=== PATIENT | male | born 1945 | race Caucasian/White ===

== ENCOUNTER → 2017-10-19 | Day surgery (SDC) | payer BC, MEDICARE ==
[2017-10-16 15:36] LABS: BASOPHILS % 0.5 % (0.0-1.0); EOSINOPHILS # (AUTO) 0.3 (0.0-0.4); EOSINOPHILS % 4.1 % (0.0-6.0); HEMATOCRIT 40.7 % (38.2-49.6); LYMPHOCYTES # (AUTO) 3.2 (1.0-3.2); LYMPHOCYTES % 41.9 % (18.0-39.1); MEAN CORPUSCULAR HEMOGLOBIN 28.5 pg (28-32); MEAN CORPUSCULAR HGB CONC 34.4 g/dL (31-35); MEAN CORPUSCULAR VOLUME 82.7 fL (81-99); MONOCYTES # (AUTO) 0.9 (0.2-0.8); MONOCYTES % 11.8 % (4.4-11.3); NEUTROPHILS # (AUTO) 3.1 (2.1-6.9); NEUTROPHILS % 41.6 % (38.7-80.0); PLATELET COUNT 218 x10e3/uL (140-360); RED BLOOD COUNT 4.92 x10e6/uL (4.3-5.7); RED CELL DISTRIBUTION WIDTH 13.6 % (11.7-14.4)
[2017-10-16 15:49] LABS: ANION GAP 12.8 mmol/L (8-16); CALCIUM 9.5 mg/dL (8.4-10.2); CREATININE, SERUM 1.41 mg/dL (0.72-1.25); POTASSIUM 3.8 mmol/L (3.5-5.1)
--- NOTE | 2017-10-16 16:05 | Diagnostic Imaging Report ---
PROCEDURE: Frontal and lateral views of the chest. COMPARISON: None. INDICATIONS: PREOPERATIVE CHEST XRAY FOR KIDNEY STONE SURGERY FINDINGS: Lines/tubes: None. Lungs: The lungs are well inflated and clear. There is no evidence of pneumonia or pulmonary edema. Pleura: There is no pleural effusion or pneumothorax. Heart and mediastinum: The heart and the mediastinum are normal. Bones: No acute bony abnormality. Degenerative changes in the thoracic spine. Calcification of anterior longitudinal ligaments suggesting DISH IMPRESSION: 1. No acute cardiopulmonary abnormalities. Rashid Fermin M.D. Dictated by: Rashid Fermin M.D. on 10/16/2017 at 16:08 Electronically approved by: Rashid Fermin M.D. on 10/16/2017 at 16:08
[~2017-10-19] MED LIST: ANDROGEL75 G1 TOP; ASPIRIN81 MG PO; ATENOLOL50 MG PO; BENICAR20 MG PO; BILBERRY80 MG PO; BYDUREON2 MG SC; CEFTRIAXONE SOD 1 GM VIAL ONE; CO Q10200 MG PEG; CRANBERRY500 MG PO; CRESTOR5 MG PO; DEXAMETHASONE SOD PHOS INJ 4 MG/ML VIAL ONE; EFFIENT10 MG PO; FENTANYL CITRATE/PF 100MCG/2 ML INJ ONE; FEXOFENADINE H180 MG PO; FINACEA50 GM TOP; FLOMAX0.4 MG PO; IOPAMIDOL 610MG/1ML 300 MG/ML VIAL IV ONE; KLOR-CON 1010 MEQ PO; LABETALOL HCL 5 MG/ML 20ML VIAL ONE; LIDOCAINE HCL 1% 2 ML AMP ONE; LIDOCAINE HCL 2% LOCAL INJ 5 ML SDV VIAL INJ ONE; METFORMIN HCL1000 MG PO; METFORMIN HCL500 MG PO; MIDAZOLAM HCL 2 MG/2 ML VIAL ONE; MONTELUKAST SOD10 MG PO; MULTI-VITAMIN1 EACH PO; NITROSTAT0.3 MG SL; OCUVITE LUTEIN1 EACH PO; ONDANSETRON HCL INJ 2 MG/ML VIAL ONE; ORACEA40 MG PO; PREVAGEN PO; PROPOFOL IV EMULSION 10 MG/ML 20 ML VIAL ONE; SELENIUM200 MC2 PO; SEVOFLURANE INHAL SOLN 250 ML PEN BTL ONE; SIMVASTATIN20 MG PO; STENDRA PO; VAYACOG CAPSUL1 EACH PO; VITAMIN D1000 UNI1 PO
--- NOTE | 2017-10-22 10:09 | Operative Report ---
DATE OF PROCEDURE: October 19, 2017 PREOPERATIVE DIAGNOSES 1. Bilateral ureteral calculi. 2. Bilateral hydronephrosis. POSTOPERATIVE DIAGNOSES 1. Bilateral ureteral calculi. 2. Bilateral hydronephrosis. PROCEDURES 1. Cystoscopy with bilateral ureteral catheterization and bilateral retrograde pyelogram (entirely separate procedure performed for diagnosis of microscopic hematuria). 2. Right-sided ureteroscopy with laser lithotripsy and stent (entirely separate procedure for the diagnosis of right ureteral calculi). 3. Supervision of fluoroscopy for ureteroscopy and dilation portion. 4. Supervision of fluoroscopy for retrograde pyelogram portion. 5. Interpretation of retrograde ureteropyelography. ANESTHESIA: General. ESTIMATED BLOOD LOSS: Minimal. COMPLICATIONS: None. INDICATIONS: Mr. Baires is a 71-year-old male with bilateral ureteral calculi, left proximal and right distal. He and I had a long discussion about alternatives, risks and benefits including doing nothing, shockwave lithotripsy, ureteroscopy, percutaneous surgery. He voiced understanding of the options, alternatives, risks, and benefits and elected to proceed. PROCEDURE IN DETAIL: After informed consent was obtained, the patient was taken to the operating room and placed supine on the table. He underwent general anesthesia by the anesthesia service. He was then placed in the dorsal lithotomy position and sterilely prepped and draped in the standard fashion for cystoscopy. A 22.5-Lebanese cystoscope was inserted per urethra. No tumors were noted. Panendoscopy of the bladder revealed no tumors and no stones. Both ureteral orifices were within normal anatomic location and position and seen to efflux clear urine. Bilateral retrograde pyelograms were performed, which revealed a right distal ureteral calculus and left proximal ureteral calculus. A guidewire was inserted. The right ureteroscope was driven to the level of the stone. It was ablated utilizing a laser. The stent was then placed with the coil in the renal pelvis and a coil in the bladder. The bladder was drained. The patient was awakened from anesthesia and transported to the recovery room in excellent condition. SUPERVISION OF FLUOROSCOPY, INTERPRETATION OF RETROGRADE URETERAL PYELOGRAPHY: I was present throughout the entire procedure and I supervised the use of fluoroscopy as no radiologist was present at any time during this procedure. Attention was turned toward the left and right ureteral orifices, catheterized with an 8-L[place]anese cone-tipped catheter. In a retrograde fashion, contrast was injected. It revealed delicate ureters, delicate pelviceal systems. Right distal ureteral calculus and left proximal ureteral calculus, and bilateral hydronephrosis. Job#: [id number] RI
== END | disposition home or self-care (01) ==
LOC: OR 07:26
PROVIDERS: ATTEND Urology
DX: N20.1 Calculus of ureter (principal); N13.30 Unspecified hydronephrosis; N40.1 Benign prostatic hyperplasia with lower urinary tract symptoms; N20.0 Calculus of kidney; N52.9 Male erectile dysfunction, unspecified; N39.0 Urinary tract infection, site not specified; E11.9 Type 2 diabetes mellitus without complications; G47.33 Obstructive sleep apnea (adult) (pediatric); I25.10 Atherosclerotic heart disease of native coronary artery without angina pectoris; I25.2 Old myocardial infarction; I10 Essential (primary) hypertension; Z01.810 Encounter for preprocedural cardiovascular examination; Z01.812 Encounter for preprocedural laboratory examination; Z01.818 Encounter for other preprocedural examination; Z79.82 Long term (current) use of aspirin; Z79.84 Long term (current) use of oral hypoglycemic drugs; Z68.30 Body mass index [BMI] 30.0-30.9, adult; Z95.5 Presence of coronary angioplasty implant and graft; Z84.1 Family history of disorders of kidney and ureter
CPT/HCPCS: 36415 ×2; 52356; 71046; 74420; 80048; 82948; 85025; 93005 ×2; C1874; J0696; J1100; J2001 ×2; J2250; J2405; J3490; Q9967

== ENCOUNTER → 2017-11-02 | Day surgery (SDC) | payer BC, MEDICARE ==
[~2017-11-02] MED LIST changes: +IOPAMIDOL 300MG/ML 50ML INFUS..BTL IV ONE; -IOPAMIDOL 610MG/1ML 300 MG/ML VIAL IV ONE; +KETOROLAC TROMETHAMINE 30 MG/ML VIAL ONE; -LABETALOL HCL 5 MG/ML 20ML VIAL ONE; -LIDOCAINE HCL 1% 2 ML AMP ONE
--- NOTE | 2017-11-04 13:50 | Operative Report ---
DATE OF PROCEDURE: November 02, 2017 PREOPERATIVE DIAGNOSES 1. Hematuria. 2. Right renal calculus. 3. Indwelling right ureteral stent. POSTOPERATIVE DIAGNOSES 1. Hematuria. 2. Right renal calculus. 3. Indwelling right ureteral stent. PROCEDURES 1. Cystourethroscopy with left ureteral catheterization in a staged fashion (entirely separate procedure for gross hematuria). 2. Right-sided cystoscopy with stent removal in a staged fashion for removal of a right indwelling stent. 3. Staged right-sided ureteroscopy with laser lithotripsy (entirely separate procedure for the diagnosis of right ureteral calculus). 4. Supervision of fluoroscopy. 5. Interpretation of retrograde ureteropyelography. ANESTHESIA: General. ESTIMATED BLOOD LOSS: Minimal. COMPLICATIONS: None. INDICATIONS: Mr. Baires is a very pleasant 71-year-old male with a history of right stent, stones and bilateral ureteral calculi. He and I had a long discussion about alternatives, risks and benefits including doing nothing, stent removal, ureteroscopy bilaterally, percutaneous surgery, open surgery. He has failed shock wave lithotripsy on the left side for left ureteral calculus. He elected to proceed. PROCEDURE IN DETAIL: After informed consent was obtained, the patient was taken to the operative suite and placed on the table, and underwent general anesthetic. The patient was placed in the dorsal lithotomy position, and sterilely prepped and draped in the standard fashion for cystoscopy. A 22.5-[place] cystoscope was inserted per urethra and was normal. It was noted to pass easily. There were no tumors and no stones. The stent was grasped. The right ureteral catheter was removed. The guidewire was inserted. Ureteroscope was driven to the level of the offending ureteral stone. Utilizing a 200 micron fiber, the stone was obliterated. The calices were then mapped. There were no other stones seen on the left side. Attention was then turned to the right ureter orifice. It was catheterized with a 5-[place] open-ended catheter. Multiple attempts were made to navigate proximal to this impacted proximal to midureteral stone on the left side. Utilizing a 5-[place] open-ended catheter and both an angled-tipped Glidewire, as well as a Super Stiff wire. I could not even get any contrast to inject proximal to this obstructing stone on the left side. With being unable to access the proximal collecting system secondary to the stone, the bladder was drained. The patient was awakened from anesthesia and will perform a percutaneous nephrostomy on the left side after discussion with the patient. Job#: [id number] EDIE
== END | disposition home or self-care (01) ==
LOC: OR 05:04
PROVIDERS: ATTEND Urology
DX: N20.1 Calculus of ureter (principal); N20.0 Calculus of kidney; Z46.6 Encounter for fitting and adjustment of urinary device; N13.30 Unspecified hydronephrosis; N39.0 Urinary tract infection, site not specified; N40.1 Benign prostatic hyperplasia with lower urinary tract symptoms; N52.9 Male erectile dysfunction, unspecified; G47.33 Obstructive sleep apnea (adult) (pediatric); I10 Essential (primary) hypertension; I25.2 Old myocardial infarction; E11.9 Type 2 diabetes mellitus without complications; I44.4 Left anterior fascicular block; Z79.82 Long term (current) use of aspirin; Z79.84 Long term (current) use of oral hypoglycemic drugs; Z68.30 Body mass index [BMI] 30.0-30.9, adult; Z95.5 Presence of coronary angioplasty implant and graft; Z84.1 Family history of disorders of kidney and ureter
CPT/HCPCS: 36415; 52353; 74420; 82948; J0696; J1100; J1885; J2001; J2250; J2405; Q9967

== ENCOUNTER → 2017-11-23 | Outpatient (CLI) | payer BC, MEDICARE ==
[~2017-11-23] VITALS: Ht 175.3 cm; Wt 95.3 kg
[~2017-11-23] MED LIST changes: -CEFTRIAXONE SOD 1 GM VIAL ONE; -DEXAMETHASONE SOD PHOS INJ 4 MG/ML VIAL ONE; +HYDRALAZINE HCL 20 MG/ML VIAL ONE; -IOPAMIDOL 300MG/ML 50ML INFUS..BTL IV ONE; -KETOROLAC TROMETHAMINE 30 MG/ML VIAL ONE; +LABETALOL HCL 20 ML ONE; +LEVOFLOXACIN 500MG/D5W 100ML 100 ML IV ONE; +LIDOCAINE HCL 2% LOCAL 20 ML VIAL ONE; -LIDOCAINE HCL 2% LOCAL INJ 5 ML SDV VIAL INJ ONE; -ONDANSETRON HCL INJ 2 MG/ML VIAL ONE; -PROPOFOL IV EMULSION 10 MG/ML 20 ML VIAL ONE; -SEVOFLURANE INHAL SOLN 250 ML PEN BTL ONE; +SODIUM CHLORIDE 0.9% 500ML 500 ML ONE
[2017-11-23 12:29] LABS: BASOPHILS % 0.4 % (0.0-1.0); EOSINOPHILS # (AUTO) 0.3 (0.0-0.4); EOSINOPHILS % 3.7 % (0.0-6.0); HEMATOCRIT 42.8 % (38.2-49.6); HEMOGLOBIN 14.7 g/dL (14.0-18.0); LYMPHOCYTES % 39.3 % (18.0-39.1); MEAN CORPUSCULAR HEMOGLOBIN 28.4 pg (28-32); MEAN CORPUSCULAR HGB CONC 34.3 g/dL (31-35); MEAN CORPUSCULAR VOLUME 82.8 fL (81-99); MONOCYTES # (AUTO) 0.9 (0.2-0.8); MONOCYTES % 11.6 % (4.4-11.3); NEUTROPHILS # (AUTO) 3.3 (2.1-6.9); NEUTROPHILS % 44.6 % (38.7-80.0); PLATELET COUNT 209 x10e3/uL (140-360); RED BLOOD COUNT 5.17 x10e6/uL (4.3-5.7); RED CELL DISTRIBUTION WIDTH 13.8 % (11.7-14.4)
[2017-11-23 12:45] LABS: INR 1.09; PROTHROMBIN TIME 13.3 seconds (11.9-14.5)
[2017-11-26 11:02] VITALS: BP 173/84
[2017-11-26 11:17] VITALS: BP 152/95
[2017-11-26 11:32] VITALS: BP 153/83
== END ==
LOC: LAB 05:00 → CATH LAB 11-26 08:59 → EDSTATUS 11-26 11:00
PROVIDERS: ATTEND Urology
DX: Z01.818 Encounter for other preprocedural examination (principal); N13.30 Unspecified hydronephrosis; Z53.8 Procedure and treatment not carried out for other reasons
CPT/HCPCS: 36415; 50430; 50432; 85025; 85610; J0360; J1956; J2001; J2250; J7040

== ENCOUNTER → 2020-02-19 | Outpatient (CLI) | payer MEDICARE, OTHER ==
[~2020-02-19] MED LIST changes: -FENTANYL CITRATE/PF 100MCG/2 ML INJ ONE; -HYDRALAZINE HCL 20 MG/ML VIAL ONE; -LABETALOL HCL 20 ML ONE; -LEVOFLOXACIN 500MG/D5W 100ML 100 ML IV ONE; -LIDOCAINE HCL 2% LOCAL 20 ML VIAL ONE; -MIDAZOLAM HCL 2 MG/2 ML VIAL ONE; -SODIUM CHLORIDE 0.9% 500ML 500 ML ONE
--- NOTE | 2020-02-19 14:51 | Diagnostic Imaging Report ---
Chest, 2 views, 02/19/2020. History: Cough. Comparison: 10/16/2017. Findings: The cardiomediastinal silhouette and pulmonary vasculature are within normal limits. The lungs are clear without evidence of consolidation or pleural effusion. Degenerative changes are present throughout the thoracic spine. There are no acute osseous or soft tissue abnormalities. Impression: No acute cardiopulmonary abnormality. Signed by: Jaquan Burt on 02/19/2020 2:48 PM
== END ==
LOC: RAD 13:42
PROVIDERS: ATTEND Internal Medicine
DX: R05 Cough (principal)
CPT/HCPCS: 71046